=== PATIENT | male | born 1995 | race Caucasian/White ===

== ENCOUNTER 2018-04-26 19:26 | Emergency (ER) | payer OTHER ==
--- NOTE | 2018-04-26 19:28 | ER Report ---
History and Physical Time Seen By MD: 19:27 HPI/ROS CHIEF COMPLAINT: Left forearm and elbow pain HISTORY OF PRESENT ILLNESS: 22-year-old male fell down stairs, landing on his left elbow. He is complaining of proximal forearm pain and left elbow pain. He is unable to straighten his elbow out. Eyes, head impact, neck pain, chest pain, shortness of breath. Patient notes a dull 4/10 pain in his left elbow, aggravated by movement and palpation. Allergies: Coded Allergies: No Known Drug Allergies (Unverified , 04/26/18) Home Meds No Active Prescriptions or Reported Meds Reviewed Nurses Notes: Yes Old Medical Records Reviewed: Yes Constitutional Vital Sign - Last 24 Hours 04/26/18 04/26/18 04/26/18 04/26/18 19:30 19:41 19:56 20:00 Temp 97.8 Pulse 50 67 65 Resp 16 B/P (MAP) 136/89 126/72 (90) Pulse Ox 94 89 93 O2 Delivery Room Air 04/26/18 20:11 Pulse 50 Pulse Ox 93 Physical Exam General appearance: Alert no distress. Respiratory: Chest is non tender, lungs are clear to auscultation. Cardiac: Regular rate and rhythm Extremities: Examination of the left arm reveals a neurovascularly intact left upper extremity. Patient does states a strong grasp. The wrist is unremarkable and demonstrates both passive and active range of motion. There is some ten derness on the proximal upper forearm near the radial head. There is an effusion of the joint noted. Patient has decreased range of motion at the elbow. Palpation of the shoulder and clavicle are unremarkable. Patient demonstrates good range of motion of his left shoulder DIFFERENTIAL DIAGNOSIS: After history and physical exam differential diagnosis was considered for sprain, strain, fracture, dislocation, contusion. Medical Decision Making EKG/Imaging Imaging X-ray: Left elbow, 3 views was obtained. I viewed the images myself on the PACS system. My interpretation of the images is: 3 views left elbow Indication: Fall, left elbow pain Comparison: None Available Findings: Bony alignment anatomic. Subtle lucency is seen to the radial neck. Moderate joint effusion is noted. Otherwise, the bones are unremarkable. IMPRESSION: 1. Moderate joint effusion with findings highly suspicious for nondisplaced fracture the radial neck The radiologist interpretation had no clinically significant variation from this interpretation. ED Course/Re-evaluation ED Course Patient was admitted to an examination room. H&P was done. The differential diagnosis was considered. On clinical examination. Patient has a swollen left elbow has decreased range of motion. He fell on his elbow. Diagnostic x-rays show an large joint effusion and fat-pad sign, suspicious for occult nondisplaced fracture. Patient's placed in a posterior splint by nursing staff. And a sling. Patient's advised ice packs and ibuprofen. He is advised to follow-up with orthopedics. He is given Dr. Rich is number. Decision to Disposition Date: Apr 26, 2018 Decision to Disposition Time: 20:13 Depart Departure Latest Vital Signs Vital Signs Date Time Temp Pulse Resp B/P (MAP) Pulse Ox O2 Delivery O2 Flow Rate FiO2 04/26/18 20:11 50 93 04/26/18 20:00 126/72 (90) 04/26/18 19:30 97.8 16 Room Air Impression: Primary Impression: Fracture of radial head, left, closed Condition: Improved Disposition: HOME OR SELF-CARE Referrals: MARY KATE RICH MD New Scripts No Active Prescriptions or Reported Meds Patient Instructions: Elbow Fracture (ED) Additional Instructions: Take ibuprofen 200 mg 3 tablets 3 times a day with food Light ice packs to your elbow area Follow-up with [facility] Dr. Rich his upper extremity specialist Monday or early next week Problem Qualifiers Primary Impression: Fracture of radial head, left, closed Encounter type: initial encounter Fracture alignment: nondisplaced Qualified Codes: S52.125A - Nondisplaced fracture of head of left radius, initial encounter for closed fracture ASH SANDOVAL DO Apr 26, 2018 19:28
[2018-04-26 20:00] VITALS: BP 126/72
--- NOTE | 2018-04-26 20:06 | RADIOLOGY IMAGING REPORT ---
FACILITY: [facility] - [place], [place] PATIENT NAME: Mikel Vinson : 1995 MR: [id number] V: [id number] EXAM DATE: ORDERING PHYSICIAN: ASH SANDOVAL TECHNOLOGIST: Location: [facility] [place] Patient: Mikel Vinson : 1995 Visit/Account:[id number] Date of Sevice: 04/26/2018 3 views left elbow Indication: Fall, left elbow pain Comparison: None Available Findings: Bony alignment anatomic. Subtle lucency is seen to the radial neck. Moderate joint effusion is noted. Otherwise, the bones are unremarkable. IMPRESSION: 1. Moderate joint effusion with findings highly suspicious for nondisplaced fracture the radial neck Report Dictated By: Yung Gonzalez MD at 04/26/2018 7:54 PM Report E-Signed By: Yung Gonzalez MD at 04/26/2018 8:02 PM WSN:[id number]
== END 2018-04-26 20:33 | disposition home or self-care (01) ==
LOC: ER 20:09
DX: S52.125A Nondisplaced fracture of head of left radius, initial encounter for closed fracture (principal); M25.422 Effusion, left elbow; W10.9XXA Fall (on) (from) unspecified stairs and steps, initial encounter
CPT/HCPCS: 73080; 99283; A4565